=== PATIENT | female | born 1990 | race Caucasian/White ===

== ENCOUNTER → 2017-09-28 | Outpatient (REF) | payer OTHER | LOC: M SFHCLERA 19:24 | DX: N30.01 Acute cystitis with hematuria (principal) ==

== ENCOUNTER → 2017-10-26 | Outpatient (CLI) | payer OTHER ==
[2017-10-26 13:38] LABS: BASO % 0.3 % (0.0-1.0); EOS % 0.3 % (0.0-3.0); HEMATOCRIT 37.4 % (36.0-47.0); HEMOGLOBIN 11.6 g/dl (12.0-16.0); IMMATURE GRANULOCYTE % 0.4 % (0-3.0); LYMPH # 1.4 10^3/uL (1.5-6.5); LYMPH % 15.5 % (24.0-44.0); MEAN CORPUSCULAR HEMOGLOBIN 25.3 pg (27.0-33.0); MEAN CORPUSCULAR VOLUME 81.5 fl (80.0-96.0); MONO # 0.6 10^3/uL (0.0-0.8); MONO % 6.9 % (0.0-5.0); NEUTROPHILS # 7.1 10^3/uL (1.8-7.7); NEUTROPHILS % 76.6 % (36.0-66.0); PLATELET COUNT, AUTOMATED 379 10^3/uL (150-450); RED BLOOD COUNT 4.59 10^6/uL (4.00-5.40); RED CELL DISTRIBUTION WIDTH 14.3 % (11.5-14.5); WHITE BLOOD COUNT 9.3 10^3/uL (4.0-10.0)
[2017-10-26 13:45] LABS: CONTROL LINE HCG INT CTR LINE PRESENT; HCG, SERUM QUALITATIVE NEGATIVE (NEGATIVE)
[2017-10-26 13:46] LABS: APPEARANCE, URINE CLOUDY (CLEAR); BACTERIA, URINE AUTO NEGATIVE (NEGATIVE); BILIRUBIN, URINE AUTO NEGATIVE (NEGATIVE); BLOOD, URINE BLOOD NEGATIVE (NEGATIVE); COLOR, URINE YELLOW (YELLOW); GLUCOSE, URINE (UA) AUTO NEGATIVE (NEGATIVE); KETONE, URINE AUTO NEGATIVE (NEGATIVE); LEUKOCYTE ESTERASE, URINE AUTO 3+ (NEGATIVE); MUCUS, URINE SMALL (NEGATIVE); NITRITE, URINE AUTO NEGATIVE (NEGATIVE); PROTEIN, URINE AUTO NEGATIVE (NEGATIVE); RBC, URINE AUTO 3 /HPF (0-3); SPECIFIC GRAVITY URINE AUTO 1.026 (1.002-1.035); SQUAMOUS EPITHELIAL CELL UR AU 9 /HPF (0-6); WBC, URINE AUTO 28 /HPF (0-3)
[2017-10-26 14:00] LABS: ERYTHROCYTE SEDIMENTATION RATE 29 mm/hr (0-20)
[2017-10-26 15:28] LABS: ALBUMIN 3.7 GM/DL (3.2-5.2); ALBUMIN/GLOBULIN RATIO 1.03 (1.00-1.93); ALKALINE PHOSPHATASE 82 U/L (45-117); ALT/SGPT 22 U/L (12-78); ANION GAP 9 MEQ/L (8-16); AST/SGOT 13 U/L (7-37); BILIRUBIN,TOTAL 0.2 MG/DL (0.2-1.0); BLOOD UREA NITROGEN 12 MG/DL (7-18); C REACTIVE PROTEIN QUANTITATIV 0.92 MG/DL (0.00-0.30); CALCIUM LEVEL 9.1 MG/DL (8.5-10.1); CARBON DIOXIDE LEVEL 25 MEQ/L (21-32); CHLORIDE LEVEL 108 MEQ/L (98-107); CHOLESTEROL LEVEL 133 MG/DL (<200); CHOLESTEROL RISK RATIO 3.911 (<5); CREATININE FOR GFR 0.89 MG/DL (0.55-1.30); FREE T4 0.86 NG/DL (0.76-1.46); GLOMERULAR FILTRATION RATE > 60.0 (>60); GLUCOSE, FASTING 110 MG/DL (70-100); HDL CHOLESTEROL 34 MG/DL (>40); LDL CHOLESTEROL 67.8 MG/DL (<100); NON-HDL-C 99 MG/DL; POTASSIUM SERUM 4.2 MEQ/L (3.5-5.1); SODIUM LEVEL 142 MEQ/L (136-145); TOTAL PROTEIN 7.3 GM/DL (6.4-8.2); TRIGLYCERIDES LEVEL 156 MG/DL (<150)
[2017-10-29 00:07] LABS: AMPHETAMINE SCREEN, URINE Negative ng/mL (Cutoff=1000); BARBITURATES SCREEN, URINE Negative ng/mL (Cutoff=200); BENZODIAZEPINES, URINE SCREEN Negative ng/mL (Cutoff=200); CANNABINOID SCREEN, URINE Negative ng/mL (Cutoff=20); COCAINE SCREEN, URINE Negative ng/mL (Cutoff=300); CREATININE, URINE 295.6 mg/dL (20.0-300.0); DEHYDROEPIANDROSTERONE UNCONJ 181 ng/dL (31-701); FENTANYL URINE SCREEN Negative pg/mL (Cutoff=2000); Lyme Disease IgG/IgM Antibodie <0.91 ISR (0.00-0.90); Lyme Disease IgM Ab Quantitati <0.80 index (0.00-0.79); METHADONE, URINE SCREEN Negative ng/mL (Cutoff=300); OPIATE SCREEN, URINE Negative ng/mL (Cutoff=300); OXYCODONE, SCREEN, URINE Negative ng/mL (Cutoff=100); PCP SCREEN, URINE Negative ng/mL (Cutoff=25); SPECIFIC GRAVITY, URINE 1.023 (.); pH, URINE 5.4 (4.5-8.9)
== END ==
LOC: M SMT 10:40
DX: F41.9 Anxiety disorder, unspecified (principal); R63.5 Abnormal weight gain; M25.512 Pain in left shoulder; M54.2 Cervicalgia
CPT/HCPCS: 84443

== ENCOUNTER → 2018-06-28 | Outpatient (CLI) | payer OTHER | LOC: M WUC 18:21 | DX: M25.561 Pain in right knee (principal) | CPT/HCPCS: 73564 ==

== ENCOUNTER → 2019-03-16 | Outpatient (CLI) | payer OTHER ==
[~2019-03-16] MED LIST: CEPH2CAP PO; COLA50CA3 PO; HYDR1SUP3 PR; IBUP600T26 PO; MACR100C3 PO; MAPA500T17 PO; MILK10SU PO; [UNRECOGNIZED DRUG - CODE] PO
--- NOTE | 2019-03-16 15:39 | REP ---
HISTORY: Contusion. COMPARISON: None. FINDINGS: The joint spaces are symmetric and relatively well maintained. There is no evidence of acute fracture or destructive osseous lesion. IMPRESSION: Negative. Electronically Signed by William Reddy DO 03/17/2019 03:21 P
== END ==
LOC: M WUC 15:17
PROVIDERS: ATTEND Physician Assistant
DX: S90.32XA Contusion of left foot, initial encounter (principal); W18.30XA Fall on same level, unspecified, initial encounter; Y92.009 Unspecified place in unspecified non-institutional (private) residence as the place of occurrence of the external cause

== ENCOUNTER 2019-08-24 12:40 | Emergency (ER) | payer OTHER ==
[~2019-08-24] VITALS: Ht 162.6 cm; Wt 110.7 kg
[2019-08-24] MEDS ORDERED: SERT-138 PO (12:50)
[2019-08-24] MEDS ORDERED: BACI500O21 TOP (14:50)
[2019-08-24] MEDS ORDERED: ZOLO100T PO (14:50)
[2019-08-24 15:14] VITALS: BP 135/82
== END 2019-08-24 15:14 | disposition home or self-care (01) ==
LOC: M ED 12:40
DX: Z76.0 Encounter for issue of repeat prescription (principal); T22.211A Burn of second degree of right forearm, initial encounter; X15.0XXA Contact with hot stove (kitchen), initial encounter; Y92.098 Other place in other non-institutional residence as the place of occurrence of the external cause; F41.9 Anxiety disorder, unspecified; F32.9 Major depressive disorder, single episode, unspecified; Z79.899 Other long term (current) drug therapy; Z79.2 Long term (current) use of antibiotics

== ENCOUNTER 2019-10-07 13:08 | Emergency (ER) | payer OTHER ==
[~2019-10-07] VITALS: Ht 162.6 cm; Wt 100.0 kg
[~2019-10-07 13:08] MED LIST changes: +BACI500O21 TOP; +SERT-138 PO; +ZOLO100T PO
[2019-10-07] MEDS ORDERED: ZOLO100T PO (14:37)
[2019-10-07 14:42] VITALS: BP 109/74
== END 2019-10-07 14:43 | disposition home or self-care (01) ==
LOC: M ED 13:08
DX: Z76.0 Encounter for issue of repeat prescription (principal); F33.9 Major depressive disorder, recurrent, unspecified; F41.9 Anxiety disorder, unspecified; Z79.899 Other long term (current) drug therapy

== ENCOUNTER 2020-01-16 23:32 | Emergency (ER) | payer MEDICAID, OTHER ==
[~2020-01-16] VITALS: Ht 160 cm; Wt 109.1 kg
[2020-01-16] MEDS ORDERED: TRAZ-252 (23:43)
[2020-01-17] MEDS ORDERED: IBUPROFEN 800 MG TAB PO ONE (00:15)
[2020-01-17] MEDS ORDERED: ACETAMINOPHEN 500 MG TAB PO ONE (00:15)
[2020-01-17 00:25] VITALS: BP 135/87
--- NOTE | 2020-01-17 08:36 | REP ---
REASON: Pain. FINDINGS: The joint spaces are symmetric and relatively well maintained. There is no evidence of acute fracture or destructive osseous lesion. IMPRESSION: Negative. Electronically Signed by William Reddy DO 01/17/2020 01:54 P
== END 2020-01-17 00:27 | disposition home or self-care (01) ==
LOC: M ED 23:32
DX: S92.341A Displaced fracture of fourth metatarsal bone, right foot, initial encounter for closed fracture (principal); W19.XXXA Unspecified fall, initial encounter; Y92.009 Unspecified place in unspecified non-institutional (private) residence as the place of occurrence of the external cause; F41.9 Anxiety disorder, unspecified; F32.9 Major depressive disorder, single episode, unspecified; Z79.899 Other long term (current) drug therapy

== ENCOUNTER → 2022-11-14 | Outpatient (CLI) | payer OTHER ==
[~2022-11-14] MED LIST changes: +PROHANCE 279.3MG/ML 15ML VIAL As Ordered ONE; +TRAZ-252
== END ==
LOC: M RAD 14:46
PROVIDERS: ATTEND Ophthalmology
DX: H47.291 Other optic atrophy, right eye (principal)
CPT/HCPCS: 70543; 70553; A9576

== ENCOUNTER → 2023-03-06 | Outpatient (CLI) | payer MEDICAID, OTHER ==
[~2023-03-06] MED LIST changes: -PROHANCE 279.3MG/ML 15ML VIAL As Ordered ONE
[2023-03-06 14:09] LABS: BASO % 0.4 % (0.0-1.0); EOS # 0.1 10^3/uL (0.0-0.5); EOS % 1.1 % (0.0-3.0); HEMATOCRIT 36.9 % (36.0-47.0); HEMOGLOBIN 11.4 g/dl (12.0-15.5); LYMPH # 1.1 10^3/uL (1.5-5.0); LYMPH % 23.3 % (24.0-44.0); MEAN CORPUSCULAR HGB CONC 30.9 g/dl (32.0-36.5); MEAN CORPUSCULAR VOLUME 87.4 fl (80.0-96.0); MONO # 0.3 10^3/uL (0.0-0.8); MONO % 6.9 % (2.0-8.0); NEUTROPHILS # 3.2 10^3/uL (1.5-8.5); NEUTROPHILS % 68.1 % (36.0-66.0); PLATELET COUNT, AUTOMATED 261 10^3/uL (150-450); RED BLOOD COUNT 4.22 10^6/uL (4.00-5.40); WHITE BLOOD COUNT 4.6 10^3/uL (4.0-10.0)
[2023-03-06 14:41] LABS: FREE T4 0.85 NG/DL (0.89-1.76); THYROID STIMULATING HORMONE 2.635 uIU/ML (0.55-4.78)
[2023-03-06 14:42] LABS: FERRITIN 4.1 NG/ML (7.3-270.7)
== END ==
LOC: M PLALAB 09:43
PROVIDERS: ATTEND Physician Assistant Medical
DX: R53.83 Other fatigue (principal)

== ENCOUNTER → 2023-05-25 | Outpatient (CLI) | payer OTHER ==
[2023-05-25 15:51] LABS: BASO % 0.6 % (0.0-1.0); EOS # 0.1 10^3/uL (0.0-0.5); HEMATOCRIT 37.3 % (36.0-47.0); HEMOGLOBIN 11.7 g/dl (12.0-15.5); LYMPH # 1.1 10^3/uL (1.5-5.0); LYMPH % 20.6 % (24.0-44.0); MEAN CORPUSCULAR HGB CONC 31.4 g/dl (32.0-36.5); MEAN CORPUSCULAR VOLUME 86.1 fl (80.0-96.0); MONO # 0.3 10^3/uL (0.0-0.8); MONO % 6.2 % (2.0-8.0); NEUTROPHILS # 3.7 10^3/uL (1.5-8.5); NEUTROPHILS % 71.2 % (36.0-66.0); PLATELET COUNT, AUTOMATED 288 10^3/uL (150-450); RED BLOOD COUNT 4.33 10^6/uL (4.00-5.40); WHITE BLOOD COUNT 5.2 10^3/uL (4.0-10.0)
[2023-05-25 22:36] LABS: CHOLESTEROL RISK RATIO 2.17 (<5); HDL CHOLESTEROL 61.5 MG/DL (>40); LDL CHOLESTEROL 59.5 MG/DL (<100); NON-HDL-C 72.5 MG/DL
[2023-05-25 22:38] LABS: FERRITIN 4.5 NG/ML (7.3-270.7)
== END ==
LOC: M PLALAB 09:57
PROVIDERS: ATTEND Physician Assistant Medical
DX: D50.0 Iron deficiency anemia secondary to blood loss (chronic) (principal)

== ENCOUNTER → 2023-05-25 | Outpatient (REF) | payer OTHER | LOC: M SFHCPLAZ 09:07 | PROVIDERS: ATTEND Physician Assistant Medical | DX: Z53.9 Procedure and treatment not carried out, unspecified reason (principal) ==

== ENCOUNTER → 2023-09-16 | Outpatient (CLI) | payer OTHER ==
[2023-09-16 14:06] LABS: BASO % 0.5 % (0.0-1.0); EOS # 0.1 10^3/uL (0.0-0.5); EOS % 1.9 % (0.0-3.0); HEMATOCRIT 35.4 % (36.0-47.0); HEMOGLOBIN 11.1 g/dl (12.0-15.5); LYMPH % 26.7 % (24.0-44.0); MEAN CORPUSCULAR HEMOGLOBIN 27.2 pg (27.0-33.0); MEAN CORPUSCULAR HGB CONC 31.4 g/dl (32.0-36.5); MEAN CORPUSCULAR VOLUME 86.8 fl (80.0-96.0); MONO # 0.3 10^3/uL (0.0-0.8); MONO % 7.4 % (2.0-8.0); NEUTROPHILS # 2.4 10^3/uL (1.5-8.5); NEUTROPHILS % 63.2 % (36.0-66.0); PLATELET COUNT, AUTOMATED 300 10^3/uL (150-450); RED BLOOD COUNT 4.08 10^6/uL (4.00-5.40); WHITE BLOOD COUNT 3.8 10^3/uL (4.0-10.0)
[2023-09-16 14:39] LABS: FERRITIN 3.3 NG/ML (7.3-270.7)
== END ==
LOC: M PLALAB 09:35
PROVIDERS: ATTEND Physician Assistant Medical
DX: D50.0 Iron deficiency anemia secondary to blood loss (chronic) (principal)

== ENCOUNTER 2023-09-21 12:51 | Outpatient (CLI) | payer OTHER ==
[~2023-09-21] VITALS: Ht 162.6 cm; Wt 68.2 kg
[~2023-09-21 12:51] MED LIST changes: +ALBUTEROL SULFATE 2.5MG/0.5ML INH NEB SOLN INH PRN; +EPINEPHrine INJ 1 MG/ML 1ML AMP IM PRN; +NS 1,000 ML IV SCH; +diphenhydrAMINE 50MG/ML VIAL IV PRN; +methylPREDNISolone 125MG 2ML VIAL IV PRN
[2023-09-21 13:20] VITALS: BP 118/55; O2SAT 96
[2023-09-21] MEDS ORDERED: diphenhydrAMINE 25MG PO PRIOR TO INFUSION PO ONE (13:30)
[2023-09-21] MEDS ORDERED: ACETAMINOPHEN 650MG PO PRIOR TO INFUSION PO ONE (13:30)
[2023-09-21] MEDS: IRON SUCROSE 25 MG in NS 23.75 ML IV ONE (14:21)
[2023-09-21] MEDS: IRON SUCROSE 225 MG in NS 213.75 ML IV ONE (15:09)
[2023-09-21 16:39] VITALS: BP 117/62; O2SAT 98
== END 2023-09-21 16:45 ==
LOC: M INFU 12:51
PROVIDERS: ATTEND Physician Assistant Medical
DX: D50.9 Iron deficiency anemia, unspecified (principal)
CPT/HCPCS: 96365; 96366; J1756

== ENCOUNTER 2023-10-05 13:00 | Outpatient (CLI) | payer OTHER ==
[~2023-10-05] VITALS: Ht 162.6 cm; Wt 72.2 kg
[~2023-10-05 13:00] MED LIST changes: +ACETAMINOPHEN 650MG PO PRIOR TO INFUSION PO ONE; +diphenhydrAMINE 25MG PO PRIOR TO INFUSION PO ONE
[2023-10-05 13:22] VITALS: BP 121/63; O2SAT 100
[2023-10-05] MEDS: IRON SUCROSE 250 MG in NS 237.5 ML IV ONE (13:33)
[2023-10-05 14:57] VITALS: BP 118/70; O2SAT 100
== END 2023-10-05 14:58 | disposition home or self-care (01) ==
LOC: M INFU 13:00
PROVIDERS: ATTEND Physician Assistant Medical
DX: D50.9 Iron deficiency anemia, unspecified (principal)
CPT/HCPCS: 96365; J1756

== ENCOUNTER 2023-10-19 14:25 | Outpatient (CLI) | payer OTHER ==
[~2023-10-19] VITALS: Ht 165.1 cm; Wt 68.1 kg
[2023-10-19 14:25] VITALS: BP 127/63; O2SAT 99
[~2023-10-19 14:25] MED LIST changes: -ACETAMINOPHEN 650MG PO PRIOR TO INFUSION PO ONE; -NS 1,000 ML IV SCH; -diphenhydrAMINE 25MG PO PRIOR TO INFUSION PO ONE
[2023-10-19] MEDS ORDERED: diphenhydrAMINE 25MG CAP PO ONE (14:30)
[2023-10-19] MEDS ORDERED: ACETAMINOPHEN TAB 650MG DOSE (2X325MG) PO ONE (14:30)
[2023-10-19] MEDS ORDERED: NS 1,000 ML IV SCH (14:30)
[2023-10-19] MEDS: IRON SUCROSE 250 MG in NS 250 ML IV ONE (15:02)
[2023-10-19 16:38] VITALS: BP_SYST 124; BP_SYST 156; BP_DIAS 67; BP_DIAS 80; O2SAT 100; O2SAT 96
== END 2023-10-19 16:40 ==
LOC: M INFU 14:25
PROVIDERS: ATTEND Physician Assistant Medical
DX: D50.9 Iron deficiency anemia, unspecified (principal)
CPT/HCPCS: 96365; J1756

== ENCOUNTER → 2023-11-16 | Outpatient (CLI) | payer OTHER ==
[~2023-11-16] MED LIST changes: -ALBUTEROL SULFATE 2.5MG/0.5ML INH NEB SOLN INH PRN; -EPINEPHrine INJ 1 MG/ML 1ML AMP IM PRN; -diphenhydrAMINE 50MG/ML VIAL IV PRN; -methylPREDNISolone 125MG 2ML VIAL IV PRN
[2023-11-16 13:15] LABS: BASO % 0.9 % (0.0-1.0); EOS % 0.9 % (0.0-3.0); HEMATOCRIT 38.7 % (36.0-47.0); HEMOGLOBIN 12.6 g/dl (12.0-15.5); LYMPH # 0.9 10^3/uL (1.5-5.0); LYMPH % 26.7 % (24.0-44.0); MEAN CORPUSCULAR HEMOGLOBIN 28.9 pg (27.0-33.0); MEAN CORPUSCULAR HGB CONC 32.6 g/dl (32.0-36.5); MEAN CORPUSCULAR VOLUME 88.8 fl (80.0-96.0); MONO # 0.3 10^3/uL (0.0-0.8); NEUTROPHILS # 2.2 10^3/uL (1.5-8.5); NEUTROPHILS % 63.2 % (36.0-66.0); PLATELET COUNT, AUTOMATED 227 10^3/uL (150-450); RED BLOOD COUNT 4.36 10^6/uL (4.00-5.40); WHITE BLOOD COUNT 3.5 10^3/uL (4.0-10.0)
[2023-11-16 13:48] LABS: FERRITIN 66.9 NG/ML (7.3-270.7)
== END ==
LOC: M PLALAB 11:26
PROVIDERS: ATTEND Physician Assistant Medical
DX: D50.0 Iron deficiency anemia secondary to blood loss (chronic) (principal)